=== PATIENT | male | born 2000 | race Caucasian/White ===

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

== ENCOUNTER 2020-02-02 23:44 | Emergency (ER) | payer OTHER, SELFPAY ==
[2020-02-02 23:45] VITALS: BP 144/91; PULSE 88; RESP 18; TEMP 37.4; O2SAT 98; BMI 22.4
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
[2020-02-03] MEDS: Naproxen 500 MG Tablet PO (01:50)
[2020-02-03 01:53] VITALS: BP 131/96; PULSE 99; RESP 16; O2SAT 96
== END 2020-02-03 01:54 | disposition home or self-care (01) ==
PROVIDERS: Emergency Provider Emergency Medicine
DX: S16.1XXA Strain of muscle, fascia and tendon at neck level, initial encounter (principal); S81.802A Unspecified open wound, left lower leg, initial encounter; V48.0XXA Car driver injured in noncollision transport accident in nontraffic accident, initial encounter; Y93.I9 Activity, other involving external motion; Y92.410 Unspecified street and highway as the place of occurrence of the external cause; Y99.8 Other external cause status
CPT/HCPCS: 70450; 71045; 72125; 73090; 99285

== ENCOUNTER → 2020-08-07 08:15 | Outpatient (CLI) | payer OTHER, SELFPAY ==
--- NOTE | 2020-08-07 08:17 | CT_ITS ---
STUDY: CT MAXILLOFACIAL SINUSES REASON FOR EXAM: Male, 20 years old. SINUSITIS RADIATION DOSAGE (If Supplied By Facility): CTDIvol = ( 33.06 ) mGy, DLP = ( 871.04 ) mGycm TECHNIQUE: The patient was scanned in a multi detector CT scanner. High resolution axial imaging was performed without the administration of intravenous contrast material. Sagittal and coronal images were reconstructed. Individualized dose optimization techniques were used for this CT. COMPARISON: None. FINDINGS: FRONTAL SINUSES: Normal aeration, without mucosal inflammatory disease. ETHMOIDAL SINUSES: Mild mucosal thickening of the ethmoid sinuses more prominent on the right side. MAXILLARY SINUSES: Normal aeration, without mucosal inflammatory disease. SPHENOIDAL SINUSES: Normal aeration, without mucosal inflammatory disease. There is patency of the bilateral maxillary infundibuli with normal uncinate processes, ethmoid bullae, and hiatus semilunaris. Normal bilateral middle turbinates. There is hypertrophy of the right inferior nasal turbinate. There is a right sided nasal septal deviation, but without a nasal septal spur. Soft tissue prominence in the right nasal fossa suggestive of polyposis. The visualized osseous structures are normal. The visualized bilateral orbital contents are normal. CT/Sinus/Facial Bone IMPRESSION: Nasal septal deviation towards the right side of the midline with the hypertrophy of the inferior nasal turbinate and soft tissue prominence of the right nasal cavity. Minimal mucosal thickening of the ethmoid sinuses bilaterally Electronically Signed: Giovanny Hernandez, at 9:03 EST , Service support ,
== END ==
PROVIDERS: PCP Internal Medicine; Referring Provider Otolaryngology; Visit Provider Otolaryngology
DX: J32.9 Chronic sinusitis, unspecified (principal)
CPT/HCPCS: 70486

== ENCOUNTER → 2020-08-29 10:25 | Outpatient (CLI) | payer OTHER, SELFPAY | PROVIDERS: PCP Internal Medicine; Referring Provider Otolaryngology; Visit Provider Otolaryngology | DX: Z11.59 Encounter for screening for other viral diseases (principal) | CPT/HCPCS: 87635; C9803; U0003 ==

== ENCOUNTER → 2020-09-10 17:07 | Outpatient (CLI) | payer OTHER, SELFPAY | PROVIDERS: PCP Internal Medicine; Referring Provider Otolaryngology; Visit Provider Otolaryngology | DX: Z11.59 Encounter for screening for other viral diseases (principal) | CPT/HCPCS: 87635; C9803; U0003 ==

== ENCOUNTER → 2020-09-17 | Outpatient (CLI) | payer OTHER, SELFPAY ==
--- NOTE | 2020-09-17 10:35 | NASAL_PTH ---
PATIENT: STELLA SANTANA LOC: [facility] U#:[id number] AGE/SX: 20/M ROOM: RE09/17/[address]: Dr. Aleksey Calles MD : 2000 BED: DIS: 09/17/2020 SPEC #: [id number] RECD: 09/17/20 15:01 STATUS: SUPA REMigdalia #: [id number] GOPAL: 09/17/20 10:[address]: Aleksey Calles DEPT: SURGICAL PATHOLOGY RECD BY: Miguel Leggett ENTERED: 09/18/20 07:14 SP TYPE: NASAL SPEC OTHR DR: Dr. Elizabeth Bell, [facility] Tissues: TISSUE SURGICALLY REMOVED Procedures: Surgery Specimen Level IV HEADER OPERATION: Open rhinoplasty PRE-OP DIAGNOSIS: Nasal congestion, deviated nasal septum, acquired deformity of nose TISSUE SUBMITTED: Nasal mass MICROSCOPIC DIAGNOSIS Nasal mass, biopsy: Benign fibroepithelial polyp. AM:elise 09/19/20 MICROSCOPIC DESCRIPTION Slides are reviewed. GROSS DESCRIPTION Received is one container labeled with the patient's name and not further designated. The specimen consists of one irregular fragment of light willard soft tissue that measures 0.2 x 0.1 x 0.1 cm. The specimen is totally submitted in one cassette. / AM:elise 09/18/20 TC:1 CPT: 06160
== END | disposition home or self-care (01) ==
LOC: LABSPEC 15:51
PROVIDERS: PCP Internal Medicine; Visit Provider Otolaryngology
DX: J34.2 Deviated nasal septum (principal); M95.0 Acquired deformity of nose; R09.81 Nasal congestion
CPT/HCPCS: 88305

== ENCOUNTER 2020-09-23 08:09 | Day surgery (SDC) | payer OTHER, SELFPAY ==
[2020-09-23] VITALS (10 sets, daily range): BP systolic 120–167; BP diastolic 76–100; PULSE 61–105; RESP 16–18; TEMP 36.6–37.6; O2SAT 96–100; BMI 23.0
[2020-09-23] MEDS: Oxymetazoline 0.05% 1 SPRAY SPRAY.BTL 2 SPRAY NASAL (08:20)
[2020-09-23] MEDS: Lidocaine 4% 50 ML Bottle TOPICAL (08:21)
[2020-09-23 08:28] LABS: Absolute Lymphocyte Count 1.72 X10^3/uL (0.83-4.51); Absolute Neutrophil Count 4.9 X10^3/uL (2.0-7.7); Basophil# 0.03 X10^3/uL; Basophil% 0.4 % (0-1); Eosinophil# 0.27 X10^3/uL; Eosinophils% 3.7 % (0-5); Hematocrit 38.3 % (40-54); Hemoglobin 13.5 g/dL (13.0-16.5); Lymphocyte # 1.72 X10^3/ul (4.0); Lymphocyte % 23.4 % (19-41); Mean Corp Hgb Conc 35.2 g/dL (32-36); Mean Corpuscular Hgb 31.8 pg (27.0-32.0); Mean Corpuscular Volume 90.3 fL (80-94); Mean Platelet Vol. 10.2 fl (6.2-12.0); Monocyte# 0.43 X10^3/uL; Monocyte% 5.9 % (0-10); NRBC Flagged by Analyzer 0 % (0-5); Neutrophil # 4.86 X10^3/uL (2.7-7.7); Neutrophil % 66.2 % (47-70); Platelet Count 200 K/mm3 (150-450); RBC Distribution Width CV 12.2 % (11.6-14.6); RBC Distribution Width SD 39.4 fl (35.1-43.9); Red Blood Count 4.24 M/mm3 (4.6-6.2); White Blood Count 7.3 K/mm3 (4.4-11.0)
--- NOTE | 2020-09-23 08:33 | ED.VISSUMM ---
- ER Visit Summary Date of Service: 09/23/20 Chief Complaint: Epistaxis History of Present Illness: The patient is a 20 M who presents with epistaxis that began today. Patient states he woke up at approximately 0600 and was bleeding from both nares. Patient had a recent septoplasty done on 09/17/2020. Patient still has stents in place. Patient states the bleeding is coming from both nares. Patient states nothing makes it better or worse. Patient denies any fevers or chills. Patient admits to a mild cough and some nausea. Patient denies any trauma or injury. Patient states he has been taking ibuprofen as needed for pain. Physical Examination: Vital signs are stable except for slight tachycardia of 105. Patient is afebrile. Patient is in no acute distress. There is some active bleeding coming from the left nares. There are stents in place. There is some bleeding in the oropharynx. Neck is supple. Trachea is midline. There is no JVD. Cranial nerves II through XII are intact. There are no focal motor or sensory deficits noted. Test Results: CBC was obtained and was within normal limits. PT with INR and PTT were also obtained and are within normal limits. Anesthesiologist requested a Covid 19 antigen test. This was performed and is pending. Emergency Department Course and Treatment: Cottonball soaked with Afrin and 4% lidocaine were placed in the openings of the nares bilaterally. Bleeding seemed to slow down and improved. Patient was transferred to the operating room for ENT evaluation. Patient and family understood and were agreeable with the plan. All questions were answered. Disposition: Transfer to operating room Impression: 1. Epistaxis This note was generated with [employer] dictation software. It may contain incorrect words, spelling, and punctuation that were not noted in review of the chart prior to signing ED Disposition - Plan for ED Patient: Disposition: Acute Care Hospital [facility] Diagnosis: Epistaxis
[2020-09-23 08:47] LABS: Prothrombin Time (Protime)PT. 13.1 SECONDS (11.7-14.9)
[2020-09-23 08:48] LABS: Partial Thromboplast Time 23.1 Seconds (24.1-36.2)
--- NOTE | 2020-09-23 09:34 | CON.PCM_ITS ---
Problem List (1) Epistaxis Status: Acute Reason for Consult Date of Consultation: 09/23/20 History of Present Illness: The patient is a 20 year old M 1 week s/p rhinoplasty. he began with an intractable nosebleed this morning that did not stop with conservative measures. no other symptoms. Past Medical History Allergies No Known Allergies Allergy (Verified 09/23/20 08:12) Home Medications: Ambulatory Orders Medication Instructions Recorded Naproxen [Naprosyn] 500 mg PO BID PRN PRN #20 tab 02/03/20 Smoking Status: Never smoker Tobacco Use: Non-smoker Review of Systems HEENT: Reports: - - epistaxis. Denies: Head Aches, Sinus Congestion, Sinus Drainage Cardiovascular: Denies: Chest Pain, Palpitations Respiratory: Denies: Cough, Shortness of breath at rest, Sputum production Patient Problems: Active and Suspected Problems Epistaxis (Acute) - Physical Exam Vitals/I&O's: Vital Signs Temp Pulse Resp BP Pulse Ox 97.8 F 105 H 18 120/100 H 99 09/23/20 09:01 09/23/20 09:01 09/23/20 09:01 09/23/20 09:01 09/23/20 09:01 Oxygen Delivery Method Room Air Weight: 77.111 kg Body Mass Index (BMI) 23.0 General: Alert, Oriented x3, Cooperative HEENT: - - gomez splints and dorsal nasal splint in place. active bleeding. Microbiology Past 72 Hours 09/23/20 08:33 Mucosa - Nose SARS-CoV-2 Antigen (Rapid) - Final Laboratory Results 09/23/20 08:20: WBC 7.3, RBC 4.24 L, Hgb 13.5, Hct 38.3 L, MCV 90.3, MCH 31.8, MCHC 35.2, RDW Std Deviation 39.4, RDW Coeff of Akhil 12.2, Plt Count 200, MPV 10.2, Immature Gran % (Auto) 0.400, Neut % (Auto) 66.2, Lymph % (Auto) 23.4, [place] % (Auto) 5.9, Eos % (Auto) 3.7, Baso % (Auto) 0.4, Absolute Neuts (auto) 4.9, Absolute Lymphs (auto) 1.72, Nucleated RBC % 0 01/04/21 08:20: PT 13.1, INR 1.0, APTT 23.1 L Current Medications Acetaminophen (Acetaminophen 325 Mg Tablet) 650 mg PO Q6H PRN PRN PRN Reason: Pain 1-10 or Fever Assessment/Plan All Active Problems Epistaxis (Acute) 20 year old 1 week s/p rhinoplasty with epistaxis -admitted to significant ibuprofen use -will cauterize in OR
--- NOTE | 2020-09-23 09:37 | OP.PCM_ITS ---
Problem List (1) Epistaxis Status: Acute Report of Operation Date of Procedure: 09/23/20 Pre-Operative Diagnosis: epistaxis Post-Operative Diagnosis: epistaxis Surgery/Procedure Performed:: cautery of nasal hemorrhage Type of Anesthesia:: General Description of Procedure: on the day of the procedure after appropriate informed consent was obtained, the patient was brought to the operating room and placed in supine position on the operating table. he was placed under general endotracheal anesthesia by the anesthesiologist. his dorsal nasal splint was removed. his gomez splints were removed. the zero degree endoscope was used to evaluate his right and left nasal cavities. he had some slight oozing from his right nasal cavity, but no significant bleeding was noted. a merocel was placed in the right. the left nasal cavity was examined and some brisk arterial bleeding was noted. no source was seen. areas around the middle turbinate were packed with oxymetazoline- soaked pledgets. these were removed and no source was seen, but hemostasis was observed. a valsalva was held, and no bleeding was seen. the superior attachment of the middle turbinate, the middle turbinate, and the location of the sphenopalatine artery posterior to the inferior uncinate were all cauterized with blanching of the surrounding tissue. no masses were seen bilaterally. surgicel was placed medial, lateral and inferior to the middle turbinate. yaa was placed bilaterally and a left-sided merocel was placed. no bleeding was observed. a nasogastric tube was inserted orally and gastric contents were evacuated. he was brought out of general endotracheal anesthesia by the anesthesiologist. he was transferred to the PACU in stable condition.
[2020-09-23] MEDS: Oxymetazoline 0.05% 1 SPRAY SPRAY.BTL 15 SPRAY (09:50)
--- NOTE | 2020-09-23 10:42 | DCINST_ITS ---
- Discharge Diagnoses Current Active Problems: Current Active and Chronic Problems Epistaxis (Acute) You will use the following diet at home:: No restrictions Discharge Activity: - - no strenuous activity Call your doctor if your incision/area has: Sudden Increased Bleeding Allergies/Adverse Reactions: Allergies No Known Allergies Allergy (Verified 09/23/20 08:12) Medications to take at Discharge Naproxen [Naprosyn] 500 mg PO BID PRN PRN #20 tab 02/03/20 Primary Care Physician: Elizabeth Bell DO [Primary Care Provider] - Test Results: Test results from this visit will be discussed in further detail at your follow- up appointment, if applicable. Please Follow Up With: Familia Calles MD When: next wednesday
[2020-09-23] MEDS: Acetaminophen 325 MG Tablet 650 MG PO (12:14)
== END 2020-09-23 13:21 | disposition home or self-care (01) ==
LOC: ED 08:33 → SDC 08:35 → ACINP 08:36
PROVIDERS: Emergency Provider Emergency Medicine; PCP Internal Medicine; Visit Provider Otolaryngology
PROC: (CPT 31238; principal; 2020-09-23 13:20)
DX: R04.0 Epistaxis (principal)
CPT/HCPCS: 31238; 85025; 85610; 85730; 87426; 99284; J7120; A4216; J2405

== ENCOUNTER 2021-07-04 08:19 | Emergency (ER) | payer OTHER, SELFPAY ==
[2021-07-04 08:20] VITALS: BP 133/81; PULSE 79; RESP 18; TEMP 35.7; O2SAT 100; BMI 23.0
--- NOTE | 2021-07-04 09:07 | CT_ITS ---
STUDY: CT ABDOMEN AND PELVIS WITH CONTRAST REASON FOR EXAM: Male, 21 years old. Diffuse abdominal pain RADIATION DOSAGE (If Supplied By Facility): CTDIvol = ( 7.85 ) mGy, DLP = ( 532.92 ) mGycm TECHNIQUE: Transaxial images were obtained from the dome of the diaphragm to the symphysis pubis without oral contrast. IV 100mL Isovue-300 was administered. Sagittal and coronal images were reconstructed. Individualized dose optimization techniques were used for this CT. COMPARISON: None. FINDINGS: The visualized lung bases are unremarkable. The visualized portions of the heart are within normal limits. Normal liver. Normal gallbladder and extrahepatic biliary system. Normal spleen. Normal pancreas. Normal bilateral adrenal glands. Normal right kidney. Normal left kidney. There is a small hiatal hernia. Normal small intestine. Diffuse thickening of the right hemicolon suggestive of colitis. This also evidence of thickening of the left hemicolon The appendix is visualized and appears normal. Normal abdominal aorta. Normal inferior vena cava. Normal retroperitoneum. Normal urinary bladder. Normal abdominal wall. Normal osseous structures. CT/Abdomen/Pelvis W IV Cont ONLY IMPRESSION: Findings suggestive of a pancolitis. Electronically Signed: Giovanny Hernandez MD at 10:16 EDT , Service support ,
--- NOTE | 2021-07-04 09:07 | ED.VIS.GI ---
HPI HPI - GI History of Present Illness Chief Complaint: Abd Pain Informant: patient Abdominal Pain/Flank Pain Onset: Today (8 hrs ago) Context: Sudden Onset (Woke up from sleep with severe pain) Timing: Continuous Quality: Aching Location: Diffuse (Pain is diffuse but basically patient is pointing to the lower and upper midline. He states the pain does not feel worse on one side versus the other.) Current Severity: Severe Maximum Severity: Severe Worsened by: Nothing Relieved by: Nothing Nausea/Vomiting/Emesis GI Symptom: Positive for Nausea; Negative for Vomiting Diarrhea/Melena/Hematochezia GI Symptom: Positive for - (Last normal bowel movement was yesterday and it was unremarkable); Negative for Diarrhea, Melena and Hematochezia Associated Symptoms Associated Symptoms: Negative for Dysuria, Frequency, Hematuria and Urgency Narrative Narrative: Healthy 21-year-old presenting with acute onset severe diffuse abdominal pain. No history of any abdominal surgeries. States the pain is nonlateralizing. Does not radiate to his back. Nauseated but cannot vomit. States he feels like he needs to vomit and go to the bathroom at the same time. He states he is unable to do either. He states he uses marijuana on occasion but no drugs no recent alcohol. Prior similar symptoms: No Recent Illness/Hospitalization: No PFSH PFSH Medical History no medical history no medical history Home Medications naproxen 500 mg PO BID PRN PRN #20 tab 02/03/20 [Rx Last Taken Unknown] dicyclomine 10 mg PO TID #21 capsule 07/04/21 [Rx Last Taken Unknown] ondansetron 8 mg PO Q8H PRN PRN #20 tab 07/04/21 [Rx Last Taken Unknown] oxycodone-acetaminophen 1 tab PO Q6H PRN PRN 5 Days #20 tablet 07/04/21 [Rx Last Taken Unknown] prednisone 40 mg PO DAILY #14 tablet 07/04/21 [Rx Last Taken Unknown] Allergy/AdvReac Type Severity Reaction Status Date / Time No Known Allergies Allergy Verified 07/04/21 08:20 Surgical History no surgical history no surgical history Social History (Updated 07/04/21 @ 09:[address] Sunday Morales MD) Smoking Status: Never smoker substance use type: marijuana and other details: No IV drug use or other illicits ROS ROS ED Constitutional Constitutional ED: Denies chills or fever(s) Eyes Eyes: Denies change in vision or diplopia ENT ENT ED: Denies rhinorrhea or sore throat Cardiovascular Cardiovascular: Denies chest pain or palpitations Respiratory/Chest Respiratory/Chest: Denies cough or dyspnea Gastrointestinal Gastrointestinal: Reports as per HPI, abdominal pain and nausea; Denies diarrhea or vomiting Genitourinary Genitourinary ED: Denies dysuria or hematuria Musculoskeletal Musculoskeletal: Denies back pain or neck pain Integumentary Denies abscess or rash Neurologic Neurologic: Denies headache(s), paresthesias or weakness Psychiatric Psychiatric: Denies anxiety or suicidal thoughts EXAM Physical Exam Const Vital Signs: 07/04/21 08:20 07/04/21 11:20 Temperature 96.3 F L Temperature Source Temporal Pulse Rate 79 Respiratory Rate 18 16 Blood Pressure 133/81 H Blood Pressure Mean 98 Pulse Ox 100 Oxygen Delivery Method Room Air Positive well nourished and well developed Constitutional Narrative: Appears to be in mild painful distress, very uncomfortable General Appearance ED: well developed HEENT Reports moist mucous membranes normocephalic and atraumatic Eyes PERRL and EOMs intact bilaterally Neck full ROM and supple Resp normal respiratory effort and clear to auscultation bilaterally Cardio regular rate, regular rhythm and no murmurs GI non-distended GI Narrative: Nondistended and diffusely tender throughout all parts of abdomen. Some voluntary guarding no specific rebound tenderness. No palpable masses but this part of the exam is limited due to tenderness. Good pulses in the feet. No palpable hernia. Auscultation: normoactive bowel sounds Palpation: soft Back/Spine no CVA tenderness and normal ROM General Back: other FROM Extremity normal to inspection General Extremety ED: Negative for edema, pulses abnormal or tenderness General Extremity: Negative for edema or pulses abnormal Neuro oriented x3, CN's II-XII intact bilaterally and no sensory deficits noted Sensorium / Orientation: awake and alert Motor Exam: strength 5/5 throughout Psych mental status grossly normal, thought process normal and cooperative Psych Narrative: A little anxious, probably due to pain Skin no rashes or lesions noted and no wounds MDM MDM MDM Narrative Medical decision making narrative: Labs reviewed in addition to CT, showing pancolitis, he has no leukocytosis. Patient was given IV fluids, Zofran, morphine, this did help control his pain. He was not pain-free, but much more comfortable after medications. I discussed with Dr. Joe BUSTAMANTE. He looked at the CT as well. He recommends giving the patient Solu-Medrol 60 mg here in addition to prednisone 40 mg daily until he follows up in about a week, and placing him on dicyclomine 10 mg/day. Discussed all this with the patient is comfortable with that plan. Lab Data Attestation: I reviewed the patient's lab results. Labs: Laboratory Results - last 24 hr 07/04/21 07/04/21 08:30 08:30 WBC 9.8 RBC 4.89 Hgb 15.0 Hct 42.1 MCV 86.1 MCH 30.7 MCHC 35.6 RDW Std Deviation 36.9 RDW Coeff of Akhil 11.8 Plt Count 242 MPV 11.3 Immature Gran % (Auto) 0.300 Neut % (Auto) 87.5 H Lymph % (Auto) 8.0 L [place] % (Auto) 3.8 Eos % (Auto) 0.1 Baso % (Auto) 0.3 Absolute Neuts (auto) 8.6 H Absolute Lymphs (auto) 0.78 L Nucleated RBC % 0 Sodium 137 Potassium 3.7 Chloride 105 Carbon Dioxide 25.0 Anion Gap 7 BUN 11 Creatinine 1.03 Estim Creat Clear Calc 123.72 Est GFR (MDRD) Af Amer 117 Est GFR (MDRD) Non-Af 97 BUN/Creatinine Ratio 10.7 Glucose 113 H Calcium 9.8 Total Bilirubin 0.70 AST 25 ALT 30 Alkaline Phosphatase 55 Total Protein 8.2 Albumin 4.4 Globulin 3.8 Albumin/Globulin Ratio 1.2 Lipase 74 Radiography Diagnostic Testing: Clinical Impression(s) from Imaging Studies Abdomen/Pelvis CT 07/04/21 09:07 IMPRESSION: Findings suggestive of a pancolitis. Electronically Signed: Giovanny Hernandez MD at 10:16 EDT , Service support , Discharge Plan Triage Chief Complaint: Abd Pain ED Provider: Sunday Morales Dx/Rx/DC Orders Clinical Impression: Pancolitis Instructions: ED Understanding Colitis Prescriptions: New dicyclomine 10 MG capsule 10 mg PO TID Qty: 21 RF: 0 prednisone 20 MG tablet 40 mg PO DAILY Qty: 14 RF: 0 ondansetron [ondansetron] 4 MG tablet 8 mg PO Q8H PRN PRN (Reason: Nausea) Qty: 20 RF: 0 oxycodone-acetaminophen [oxycodone-acetaminophen] 1 TABLET tablet 1 tab PO Q6H PRN PRN (Reason: pain) 5 Days Qty: 20 RF: 0 No Action naproxen 500 MG tablet 500 mg PO BID PRN PRN (Reason: Pain Score 4-10/10) Qty: 20 RF: 0 Primary Care Provider: Elizabeth Bell Referrals: Elizabeth Bell DO [Primary Care Provider] - Friend,DO Chucky [STAFF PHYSICIAN] - 5-7 Days (call for appt) Disposition Disposition: Home, Self Care
[2021-07-04 09:15] LABS: Absolute Lymphocyte Count 0.78 X10^3/uL (0.83-4.51); Absolute Neutrophil Count 8.6 X10^3/uL (2.0-7.7); Basophil# 0.03 X10^3/uL; Basophil% 0.3 % (0-1); Eosinophil# 0.01 X10^3/uL; Eosinophils% 0.1 % (0-5); Hematocrit 42.1 % (40-54); Lymphocyte # 0.78 X10^3/ul (0.83-4.51); Mean Corp Hgb Conc 35.6 g/dL (32-36); Mean Corpuscular Hgb 30.7 pg (27.0-32.0); Mean Corpuscular Volume 86.1 fL (80-94); Mean Platelet Vol. 11.3 fl (6.2-12.0); Monocyte# 0.37 X10^3/uL; Monocyte% 3.8 % (0-10); NRBC Flagged by Analyzer 0 % (0-5); Neutrophil # 8.58 X10^3/uL (2.7-7.7); Neutrophil % 87.5 % (47-70); Platelet Count 242 K/mm3 (150-450); RBC Distribution Width CV 11.8 % (11.6-14.6); RBC Distribution Width SD 36.9 fl (35.1-43.9); Red Blood Count 4.89 M/mm3 (4.6-6.2); White Blood Count 9.8 K/mm3 (4.4-11.0)
[2021-07-04] MEDS: Ondansetron 4 MG/2 ML Vial IV (09:15)
[2021-07-04] MEDS: Morphine 4 MG/ML Syringe IV ×2 (09:15→12:28)
[2021-07-04] MEDS: 0.9% Normal Saline 1,000 ML 1000 ML IV (09:16)
[2021-07-04 09:27] LABS: ALB/GLOB Ratio 1.2 RATIO (0.9-2.4); AST(SGOT) 25 U/L (15-37); Alanine Aminotransfer ALT/SGPT 30 U/L (16-61); Albumin, Serum 4.4 g/dL (3.2-5.0); Alkaline Phosphatase 55 U/L (45-117); Anion Gap 7 (5-15); BUN 11 mg/dL (7-18); BUN/Creat Ratio 10.7 RATIO (10-20); Calcium,Total 9.8 mg/dL (8.5-10.1); Chloride 105 mmol/L (98-107); Creatinine, Serum 1.03 mg/dL (0.70-1.30); EST Glomerular Filtration Rate 97 mL/min (>60); Est Glom Filt Rate - Afr Amer 117 mL/min (>60); Estimated Creatinine Clearance 123.72 ml/min; Globulin 3.8 g/dL (2.2-4.2); Glucose 113 mg/dL (74-106); Lipase 74 U/L (73-393); Potassium 3.7 mmol/L (3.5-5.1); Protein, Total 8.2 g/dL (6.4-8.2); Sodium Level 137 mmol/L (136-145)
[2021-07-04 11:20] VITALS: RESP 16
[2021-07-04] MEDS: Dicyclomine 10 MG Capsule PO (11:42)
[2021-07-04 11:43] LABS: Bacteria 0 SEEN /hpf (None Seen); Mucous, Urine 0 SEEN /hpf (<or=2+); Red Blood Cells-Urine 0 SEEN /hpf (0-5); White Blood Cells 0 SEEN /hpf (0-5)
[2021-07-04] MEDS: MethylPREDNISolone 125 MG/2 ML Vial 60 MG IV (11:45)
[2021-07-04 11:47] LABS: Color, Urine Yellow (Yellow); Glucose, Dipstick Normal (Normal); Leukocyte Esterase-Dipstick Negative /ul (Negative); Nitrite-Dipstick Negative (Negative); Occult Blood-Urine Negative /ul (Negative); Protein-Dipstick Negative (Negative); Specific Gravity, Urine 1.015 (1.002-1.030); Urine Bilirubin Dipstick Negative (Negative); Urine Clarity Clear (Clear); Urine Urobilinogen Normal (Normal)
[2021-07-04 11:54] LABS: Ketone-Dipstick 150 mg/dl (Negative)
[2021-07-04 11:55] LABS: Squamous Epithelial Cells - UA 0-5 SEEN /hpf (0-5)
[2021-07-04] MEDS: Metoclopramide 10 MG/2 ML Vial 5 MG IV (12:28)
--- NOTE | 2021-07-04 12:57 | ED.RN ---
PT DID NOT WANT TO BE ADMITTED PT EDUCATED ON D/C INSTRUCTIONS AND HOME SCRIPTS. PT LOOKED MORE COMFORTABLE AFTER FINAL DOSE OF MORPHINE AND REGLAN. PT D/C AFTER SHOT TIME WAS OBSERVED FOR GREATER THAN 20 MIN. NO REACTION NOTED BY THIS RN.
[2021-07-04 12:59] VITALS: PULSE 100; RESP 19; O2SAT 97
== END 2021-07-04 13:00 | disposition home or self-care (01) ==
PROVIDERS: Emergency Provider Emergency Medicine; PCP Internal Medicine
DX: K51.00 Ulcerative (chronic) pancolitis without complications (principal)
CPT/HCPCS: 74177; 80053; 81001; 83690; 85025; 96361; 96374; 96375; 99283; J7030; Q9967; A4216; J2405

== ENCOUNTER 2021-07-30 07:47 | Emergency (ER) | payer OTHER, SELFPAY ==
[2021-07-30 07:48] VITALS: BP 120/80; PULSE 94; RESP 16; TEMP 36.4; O2SAT 100; BMI 22.4
--- NOTE | 2021-07-30 07:57 | CT_ITS ---
STUDY: CT ABDOMEN AND PELVIS WITHOUT CONTRAST REASON FOR EXAM: Male, 21 years old. Right lower quadrant pain with history of colitis. RADIATION DOSAGE (If Supplied By Facility): CTDIvol = ( 5.63 ) mGy, DLP = ( 282.07 ) mGycm TECHNIQUE: Transaxial images were obtained from the dome of the diaphragm to the symphysis pubis without oral contrast, and without intravenous contrast. Sagittal and coronal images were reconstructed. Individualized dose optimization techniques were used for this CT. COMPARISON: Comparison is made with prior study 07/04/2021. FINDINGS: The visualized lung bases are unremarkable. The visualized portions of the heart are within normal limits. Normal liver. Normal gallbladder and extrahepatic biliary system. Normal spleen. Normal pancreas. Normal bilateral adrenal glands. Normal right kidney. Normal left kidney. There is a small hiatal hernia. Normal small intestine. I suspect mural thickening of the transverse colon and left hemicolon although the examination is limited without oral contrast. I suspect residual colitis. The appendix is visualized and appears normal. Normal abdominal aorta. Normal inferior vena cava. Normal retroperitoneum. Normal urinary bladder. Normal abdominal wall. Normal osseous structures. CT/Abdomen/Pelvis without Cont IMPRESSION: I suspect residual colitis of the transverse colon and left hemicolon. Electronically Signed: Giovanny Hernandez MD at 9:03 EST , Service support ,
--- NOTE | 2021-07-30 07:58 | ED.VIS.GI ---
HPI HPI - GI History of Present Illness Chief Complaint: Abd Pain Detail of Chief Complaint: Abdominal pain that started around 3 AM. Informant: patient Abdominal Pain/Flank Pain Current Severity: Severe Nausea/Vomiting/Emesis GI Symptom: Positive for Nausea and Vomiting Narrative Narrative: Patient presents to the emergency room with complaint of abdominal pain that started around 3 AM. Patient states that he had similar pain about a month ago and was seen in the ER and diagnosed with pancolitis. Patient was started on steroids and referred to GI for follow-up. Patient states he never followed up with GI and when asked why he states because I am irresponsible. Patient states the pain feels similar. States the pain is more lower right quadrant. Has had no fever. Patient is thrown up about 4 5 times. He denies any diarrhea. He denies urinary symptoms. Patient denies any blood in his stool or black tarry stools. PFSH PFSH Home Medications dicyclomine 10 mg PO TID #21 capsule 07/04/21 [Rx Last Taken Unknown] ondansetron 8 mg PO Q8H PRN PRN #20 tab 07/04/21 [Rx Last Taken Unknown] ciprofloxacin HCl [Cipro] 500 mg PO BID #20 tab 07/30/21 [Rx Last Taken Unknown] hydrocodone-acetaminophen 1 tab PO Q4H PRN PRN 2 Days #10 tablet 07/30/21 [Rx Last Taken Unknown] metronidazole 500 mg PO Q8H #30 tab 07/30/21 [Rx Last Taken Unknown] prednisone 20 mg PO BID #10 tab 07/30/21 [Rx Last Taken Unknown] Allergy/AdvReac Type Severity Reaction Status Date / Time No Known Allergies Allergy Verified 07/30/21 07:50 Social History (Updated 07/04/21 @ 09:[address] Sunday Morales MD) Smoking Status: Never smoker substance use type: marijuana and other details: No IV drug use or other illicits ROS ROS ED Constitutional Constitutional ED: Reports systems reviewed and no addt'l complaints, except as documented; Denies body ache(s), change in weight or chills Eyes Eyes: Denies acute decrease in peripheral vision, change in vision, double vision or loss of vision ENT ENT ED: Reports none; Denies ear pain, lip swelling, loss taste/smell, neck pain, otalgia or sore throat Cardiovascular Cardiovascular: Reports none; Denies abdominal pain, chest pain with activity, leg edema, lightheadedness, palpitations, rapid heart rate or syncope Respiratory/Chest Respiratory/Chest: Reports none; Denies change in mental status, dry cough, dyspnea, hemoptysis, shortness of breath at rest or shortness of breath with exertion Gastrointestinal Gastrointestinal: Reports none, abdominal pain, nausea and vomiting; Denies change in stool character, diarrhea, hematemesis, hematochezia, melena or rectal bleeding Genitourinary Genitourinary ED: Reports none; Denies abdominal discomfort, anuria, dysuria, genital pain or polyuria Musculoskeletal Musculoskeletal: Reports none; Denies arthralgias, back pain, difficulty walking, extremity pain, muscle weakness or myalgias Integumentary Reports none; Denies abscess or rash Neurologic Neurologic: Reports none; Denies abnormal gait, confusion, focal weakness, frequent falls, headache(s), loss of vision, numbness, paresthesias, radicular pain, vertigo or weakness Psychiatric Psychiatric: Reports systems reviewed and no addt'l complaints, except as documented and none; Denies behavioral changes, confusion, difficulty concentrating, hallucinations, suicidal ideation, tactile hallucinations or visual hallucinations Endocrine Endocrinology: Denies none, cold intolerance, excessive sweating, fatigue or heat intolerance Hematologic/Lymphatic Hematologic/Lymphatic: Reports none; Denies anemia, easy bleeding or easy bruising Allergic/Immunologic Allergic/Immunologic ED: Denies as per HPI, none, lip swelling, mouth swelling, throat swelling, tongue swelling or hives EXAM Physical Exam Const Vital Signs: 07/30/21 07:48 07/30/21 10:55 Temperature 97.5 F L Temperature Source Temporal Pulse Rate 94 90 Respiratory Rate 16 18 Blood Pressure 120/80 130/90 H Blood Pressure Mean 93 103 Pulse Ox 100 99 Oxygen Delivery Method Room Air Room Air Positive well nourished and well developed General Appearance ED: well developed and NAD HEENT Reports TM's clear and moist mucous membranes normocephalic and atraumatic; Negative for trauma or tenderness Tympanic Membrane ED: Yes TM's clear Eyes PERRL and EOMs intact bilaterally General Eye ED: Negative for pale conjunctiva or scleral icterus Neck no lymphadenopathy, supple and no JVD General: Negative for tenderness Chest Wall inspection of chest normal and palpation of chest normal Chest: Negative for tenderness Resp normal respiratory effort and clear to auscultation bilaterally Effort and Inspection: Negative for respiratory distress or pain with movement Auscultation: Negative for rhonchi, wheezes or diminished lung sounds Cardio regular rate, regular rhythm, S1 normal heart sound, S2 normal heart sound and no murmurs Peripheral Pulses: pulses 2+ throughout GI normal to inspection, nondistended, normoactive bowel sounds, soft to palpation, non-distended and no masses GI Narrative: Tenderness to right lower quadrant with guarding. Tenderness over McBurney's. No rebound or rigidity. Palpation: tender Back/Spine no CVA tenderness and no thoracic nor lumbar tenderness Extremity normal to inspection General Extremety ED: Negative for edema General Extremity: Negative for edema Neuro oriented x3, CN's II-XII intact bilaterally, no sensory deficits noted and gait normal Sensorium / Orientation: awake, alert, oriented to person, oriented to place and oriented to time Motor Exam: strength 5/5 throughout and strength abnormal Psych mental status grossly normal Skin no rashes or lesions noted and no wounds MDM MDM MDM Narrative Medical decision making narrative: IV line established. Patient was given morphine and Zofran for pain and initially had good pain relief with that. Repeat CT scan showed residual colitis of the transverse colon left hemicolon. Case discussed with content development manager on-call Dr. Diaz. Was asked start patient on antibiotics and steroids and they be happy to see him in the office. Patient's pain returned and had to be remedicated with 4 mg of morphine. I offered him admission for pain control although he would like to go home and follow-up with GI. Patient advised to return if worsening pain, fever, bloody stools, or condition should worsen anyway. Patient was given p.o. meds and then had another emesis. He continues to have nausea and vomiting as well as abdominal discomfort. I recommended admission however patient is refusing and does not want to stay. He is advised to return if symptoms should persist or worsen. Lab Data Attestation: I reviewed the patient's lab results. Labs: Laboratory Results - last 24 hr 07/30/21 07/30/21 07/30/21 08:15 08:15 08:15 WBC 8.8 RBC 4.89 Hgb 14.9 Hct 43.0 MCV 87.9 MCH 30.5 MCHC 34.7 RDW Std Deviation 40.5 RDW Coeff of Akhil 12.4 Plt Count 241 MPV 10.9 Immature Gran % (Auto) 0.500 Neut % (Auto) 84.9 H Lymph % (Auto) 10.7 L [place] % (Auto) 3.2 Eos % (Auto) 0.1 Baso % (Auto) 0.6 Absolute Neuts (auto) 7.4 Absolute Lymphs (auto) 0.94 Nucleated RBC % 0 Sodium 140 Potassium 3.9 Chloride 107 Carbon Dioxide 27.0 Anion Gap 6 BUN 8 Creatinine 1.01 Estim Creat Clear Calc 126.00 Est GFR (MDRD) Af Amer 120 Est GFR (MDRD) Non-Af 99 BUN/Creatinine Ratio 7.9 L Glucose 110 H Lactic Acid 2.2 H* Calcium 9.4 Total Bilirubin 0.30 AST 19 ALT 25 Alkaline Phosphatase 60 C-React Prot Ext Range < 2.90 Total Protein 8.0 Albumin 4.4 Globulin 3.6 Albumin/Globulin Ratio 1.2 Urine Color Urine Clarity Urine pH Ur Specific [place] Urine Protein Urine Glucose (UA) Urine Ketones Urine Occult Blood Urine Nitrite Urine Bilirubin Urine Urobilinogen Ur Leukocyte Esterase Urine RBC Urine WBC Ur Squamous Epith Cells Urine Bacteria Urine Mucus 07/30/21 10:40 WBC RBC Hgb Hct MCV MCH MCHC RDW Std Deviation RDW Coeff of Akhil Plt Count MPV Immature Gran % (Auto) Neut % (Auto) Lymph % (Auto) [place] % (Auto) Eos % (Auto) Baso % (Auto) Absolute Neuts (auto) Absolute Lymphs (auto) Nucleated RBC % Sodium Potassium Chloride Carbon Dioxide Anion Gap BUN Creatinine Estim Creat Clear Calc Est GFR (MDRD) Af Amer Est GFR (MDRD) Non-Af BUN/Creatinine Ratio Glucose Lactic Acid Calcium Total Bilirubin AST ALT Alkaline Phosphatase C-React Prot Ext Range Total Protein Albumin Globulin Albumin/Globulin Ratio Urine Color Yellow Urine Clarity Clear Urine pH 8.0 Ur Specific [place] 1.010 Urine Protein 15 H Urine Glucose (UA) Normal Urine Ketones Negative Urine Occult Blood Negative Urine Nitrite Negative Urine Bilirubin Negative Urine Urobilinogen Normal Ur Leukocyte Esterase Negative Urine RBC 0 SEEN Urine WBC 0 SEEN Ur Squamous Epith Cells 0 SEEN Urine Bacteria 0 SEEN Urine Mucus 0 SEEN Radiography Diagnostic Testing: Clinical Impression(s) from Imaging Studies Abdomen/Pelvis CT 07/30/21 07:57 IMPRESSION: I suspect residual colitis of the transverse colon and left hemicolon. Electronically Signed: Giovanny Hernandez MD at 9:03 EST , Service support , Discharge Plan Triage Chief Complaint: Abd Pain ED Provider: Vesna Walton Dx/Rx/DC Orders Clinical Impression: Abdominal pain, Colitis Instructions: Abdominal Pain, ED Ulcerative Colitis Prescriptions: New ciprofloxacin HCl [Cipro] 500 mg tablet 500 mg PO BID Qty: 20 RF: 0 metronidazole 500 mg tablet 500 mg PO Q8H Qty: 30 RF: 0 prednisone 20 mg tablet 20 mg PO BID Qty: 10 RF: 0 hydrocodone-acetaminophen [hydrocodone-acetaminophen] 1 TABLET tablet 1 tab PO Q4H PRN PRN (Reason: Pain) 2 Days Qty: 10 RF: 0 No Action dicyclomine 10 MG capsule 10 mg PO TID Qty: 21 RF: 0 ondansetron [ondansetron] 4 MG tablet 8 mg PO Q8H PRN PRN (Reason: Nausea) Qty: 20 RF: 0 Primary Care Provider: Elizabeth Bell Referrals: Elizabeth Bell DO [Primary Care Provider] - Friend,DO Chucky [STAFF PHYSICIAN] - 3-5 Days Disposition Disposition: Home, Self Care Discharge Date/Time: 07/30/21 12:47
[2021-07-30] MEDS: Ondansetron 4 MG/2 ML Vial IV ×2 (08:19→11:03)
[2021-07-30] MEDS: Morphine 4 MG/ML Syringe IV ×2 (08:19→10:48)
[2021-07-30 08:20] LABS: Absolute Lymphocyte Count 0.94 X10^3/uL (0.83-4.51); Absolute Neutrophil Count 7.4 X10^3/uL (2.0-7.7); Basophil# 0.05 X10^3/uL; Basophil% 0.6 % (0-1); Eosinophil# 0.01 X10^3/uL; Eosinophils% 0.1 % (0-5); Hemoglobin 14.9 g/dL (13.0-16.5); Lymphocyte # 0.94 X10^3/ul (0.83-4.51); Lymphocyte % 10.7 % (19-41); Mean Corp Hgb Conc 34.7 g/dL (32-36); Mean Corpuscular Hgb 30.5 pg (27.0-32.0); Mean Corpuscular Volume 87.9 fL (80-94); Mean Platelet Vol. 10.9 fl (6.2-12.0); Monocyte# 0.28 X10^3/uL; Monocyte% 3.2 % (0-10); NRBC Flagged by Analyzer 0 % (0-5); Neutrophil # 7.43 X10^3/uL (2.7-7.7); Neutrophil % 84.9 % (47-70); Platelet Count 241 K/mm3 (150-450); RBC Distribution Width CV 12.4 % (11.6-14.6); RBC Distribution Width SD 40.5 fl (35.1-43.9); Red Blood Count 4.89 M/mm3 (4.6-6.2); White Blood Count 8.8 K/mm3 (4.4-11.0)
[2021-07-30] MEDS: 0.9% Normal Saline 1,000 ML 125 ML IV (08:20)
[2021-07-30 08:46] LABS: ALB/GLOB Ratio 1.2 RATIO (0.9-2.4); AST(SGOT) 19 U/L (15-37); Alanine Aminotransfer ALT/SGPT 25 U/L (16-61); Albumin, Serum 4.4 g/dL (3.2-5.0); Alkaline Phosphatase 60 U/L (45-117); Anion Gap 6 (5-15); BUN 8 mg/dL (7-18); BUN/Creat Ratio 7.9 RATIO (10-20); CRP < 2.90 mg/L (0.0-3.0); Calcium,Total 9.4 mg/dL (8.5-10.1); Chloride 107 mmol/L (98-107); Creatinine, Serum 1.01 mg/dL (0.70-1.30); EST Glomerular Filtration Rate 99 mL/min (>60); Est Glom Filt Rate - Afr Amer 120 mL/min (>60); Globulin 3.6 g/dL (2.2-4.2); Glucose 110 mg/dL (74-106); Potassium 3.9 mmol/L (3.5-5.1); Sodium Level 140 mmol/L (136-145)
[2021-07-30 08:49] LABS: Lactic Acid 2.2 mmol/L (0.4-1.9)
--- NOTE | 2021-07-30 09:03 | ED.RN ---
pt to bathroom . aware needs urine sample but will not provide
[2021-07-30 10:47] LABS: Bacteria 0 SEEN /hpf (None Seen); Mucous, Urine 0 SEEN /hpf (<or=2+); Red Blood Cells-Urine 0 SEEN /hpf (0-5); Squamous Epithelial Cells - UA 0 SEEN /hpf (0-5); White Blood Cells 0 SEEN /hpf (0-5)
[2021-07-30 10:48] LABS: Color, Urine Yellow (Yellow); Glucose, Dipstick Normal (Normal); Ketone-Dipstick Negative (Negative); Leukocyte Esterase-Dipstick Negative /ul (Negative); Nitrite-Dipstick Negative (Negative); Occult Blood-Urine Negative /ul (Negative); Protein-Dipstick 15 mg/dl (Negative); Urine Bilirubin Dipstick Negative (Negative); Urine Clarity Clear (Clear); Urine Urobilinogen Normal (Normal)
[2021-07-30 10:55] VITALS: BP 130/90; PULSE 90; RESP 18; O2SAT 99
[2021-07-30 12:18] LABS: Reflex Lactate? Y
[2021-07-30] MEDS: predniSONE 20 MG Tablet 40 MG PO (12:19)
[2021-07-30] MEDS: Ciprofloxacin 500 MG Tablet PO (12:20)
[2021-07-30] MEDS: metroNIDAZOLE 500 MG Tablet PO (12:20)
--- NOTE | 2021-07-30 12:44 | ED.RN ---
rn at bedside to see how patient felt after oral antibiotics and prednisone. pt states meds really messed up my stomach but i still want to go home. RN removed patients IV and patient sat up in bed and began vomiting. RN asked patient again if it would be an option to stay in the hospital to get pain and vomiting under control. pt states he still wants to go home and he will return if he gets worse. pt walked out of ED in no distress.
== END 2021-07-30 12:47 | disposition home or self-care (01) ==
PROVIDERS: Emergency Provider Emergency Medicine; PCP Internal Medicine
DX: K52.9 Noninfective gastroenteritis and colitis, unspecified (principal)
CPT/HCPCS: 74176; 80053; 81001; 83605; 85025; 86140; 96361; 96374; 96375; 96376; 99284; J7030; A4216; J2405

== ENCOUNTER 2023-08-17 05:25 | Emergency (ER) | payer OTHER, SELFPAY ==
[2023-08-17 05:25] VITALS: BP 155/97; PULSE 92; RESP 14; TEMP 36.6; O2SAT 97; BMI 23.7
--- NOTE | 2023-08-17 05:32 | EDS_ITS ---
HPI History of Present Illness Chief Complaint: Ear Problem Informant: patient Onset/Context/Timing Onset: Days (4 days) Context: Gradual Onset Narrative Narrative: Patient presents with 4-day history of right ear pain. He states he will sometimes get ear pain when he has sinus congestion but does not currently have any congestion or URI symptoms. He did clean his ears out with a Q-tip but states he was not overly aggressive. He has not had fever or cough. He has not taken anything for pain. PFSH PFSH Medical History no medical history no medical history Home Medications naproxen 500 mg tablet (Naprosyn) 500 mg PO BID PRN pain #20 tabs 08/17/23 [Rx Last Taken Unknown] Allergy/AdvReac Type Severity Reaction Status Date / Time No Known Allergies Allergy Verified 08/17/23 06:04 Social History Smoking Status: Never smoker substance use type: marijuana and other details: No IV drug use or other illicits ROS ROS ED Constitutional Constitutional ED: Denies chills or fever(s) Eyes Eyes: Denies discharge from eye(s) ENT ENT ED: Reports ear pain right; Denies discharge from eye(s), rhinorrhea or sore throat Cardiovascular Cardiovascular: Denies chest pain Respiratory/Chest Respiratory/Chest: Denies cough or dyspnea Gastrointestinal Gastrointestinal: Denies abdominal pain, nausea or vomiting Musculoskeletal Musculoskeletal: Denies back pain or extremity pain Integumentary Denies Abrasions or rash Neurologic Neurologic: Denies headache(s) or weakness Psychiatric Psychiatric: Denies anxiety or depression Allergic/Immunologic Allergic/Immunologic ED: Denies lip swelling or urticaria EXAM Physical Exam Narrative Exam Narrative: Patient nontoxic-appearing and in no acute distress. Speaks with a strong voice and tolerates secretions well. Const Vital Signs: 08/17/23 05:25 Temperature 98 F Temperature Source Temporal Pulse Rate 92 Respiratory Rate 14 Blood Pressure 155/97 H Blood Pressure Mean 116 Pulse Ox 97 Oxygen Delivery Method Room Air Positive well nourished and well developed General Appearance ED: well developed HEENT Reports moist mucous membranes HEENT Narrative: 3+ tonsils. Uvula midline. TMs are clear bilaterally with no evidence of otitis. Eyes EOMs intact bilaterally Neck Neck Narrative: Mild bilateral cervical lymphadenopathy. Chest Wall inspection of chest normal and palpation of chest normal Resp normal respiratory effort and clear to auscultation bilaterally Cardio regular rate and regular rhythm GI non-tender Palpation: soft Extremity normal to inspection Neuro oriented x3 and no sensory deficits noted Motor Exam: strength 5/5 throughout Psych mental status grossly normal Skin no rashes or lesions noted MDM MDM MDM Narrative Medical decision making narrative: Patient given dose of naproxen for pain. Rapid strep test sent. Rapid strep test is negative. Test results discussed with the patient. I advised him I would give him a single dose of Decadron here to help with some of the tonsillar swelling and write him a prescription for naproxen. He is now requesting a COVID test. COVID test is obtained and is also negative. Supportive care discussed and return instructions given. Discharge Plan Triage Chief Complaint: Ear Problem ED Provider: Martha Stevens Dx/Rx/DC Orders Clinical Impression: Otalgia, Acute viral pharyngitis Instructions: ED Earache Without Infection (Adult), ED Pharyngitis, Viral Prescriptions: New naproxen [Naprosyn] 500 mg tablet 500 mg PO BID PRN (Reason: pain) Qty: 20 0RF Primary Care Provider: Care Physician,No Primary Referrals: Darell Garcia MD [Med Staff - Dry Transfer Man] - As Needed NOT,DEFINED [Non-Staff] - Disposition Disposition: Home, Self Care
[2023-08-17] MEDS: Naproxen 500 MG Tablet PO (05:51)
[2023-08-17] MEDS: dexAMETHasone 4 MG Tablet 6 MG PO (06:20)
== END 2023-08-17 06:52 | disposition home or self-care (01) ==
PROVIDERS: Emergency Provider Emergency Medicine; Visit Provider Emergency Medicine
DX: J02.8 Acute pharyngitis due to other specified organisms (principal); H92.09 Otalgia, unspecified ear
CPT/HCPCS: 87811; 87880; 99283

== ENCOUNTER 2023-09-22 20:18 | Emergency (ER) | payer OTHER, SELFPAY ==
[2023-09-22 20:19] VITALS: BP 147/80; PULSE 93; RESP 18; TEMP 36.7; O2SAT 100; BMI 21.2
--- NOTE | 2023-09-22 20:23 | RAD_ITS ---
STUDY: X-RAY - LEFT CLAVICLE REASON FOR EXAM: Male, 23 years old. FALL TECHNIQUE: 2 view(s) of the clavicle. COMPARISON: None. FINDINGS: There is a comminuted fracture involving the distal aspect of the left clavicle with multiple displaced fragments. Otherwise normal acromioclavicular articulation. Normal visualized sternoclavicular articulation. Normal visualized pulmonary apex. RAD/Clavicle IMPRESSION: Left clavicular fracture as described. Electronically Signed: Flaquita Del Valle MD at 21:04 EST ,
[2023-09-22] MEDS: HYDROcodone Bitartrate/Apap 5/325 Tablet PO (21:31)
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
[2023-09-22 22:52] VITALS: BP 134/68; PULSE 78; RESP 18
== END 2023-09-22 23:21 | disposition home or self-care (01) ==
PROVIDERS: Emergency Provider Student in an Organized Health Care Education/Training Program; PCP Internal Medicine; Visit Provider Student in an Organized Health Care Education/Training Program
DX: S42.002A Fracture of unspecified part of left clavicle, initial encounter for closed fracture (principal); S62.102A Fracture of unspecified carpal bone, left wrist, initial encounter for closed fracture; W19.XXXA Unspecified fall, initial encounter
CPT/HCPCS: 73000; 99283

== ENCOUNTER 2024-08-12 12:54 | Emergency (ER) | payer OTHER, SELFPAY ==
[2024-08-12 12:55] VITALS: BP 117/80; PULSE 70; RESP 14; TEMP 36.1; O2SAT 98
--- NOTE | 2024-08-12 13:05 | CT_ITS ---
STUDY: CT ABDOMEN AND PELVIS WITH CONTRAST REASON FOR EXAM: Male, 24 years old. Pain RADIATION DOSAGE (If Supplied By Facility): CTDIvol = ( 8.74 ) mGy, DLP = ( 457.69 ) mGycm TECHNIQUE: Transaxial images were obtained from the dome of the diaphragm to the symphysis pubis without oral contrast. IV 100mL Isovue-370 was administered. Sagittal and coronal images were reconstructed. Individualized dose optimization techniques were used for this CT. COMPARISON: July 30, 2021 FINDINGS: The visualized lung bases are unremarkable. The visualized portions of the heart are within normal limits. Normal liver. Normal gallbladder and extrahepatic biliary system. Normal spleen. Normal pancreas. Normal bilateral adrenal glands. Normal right kidney. Normal left kidney. Normal visualized stomach. Normal small intestine. There is mild wall thickening of the descending colon with adjacent edema. There is non-visualization of the appendix. Normal abdominal aorta. Normal inferior vena cava. Normal retroperitoneum. Normal urinary bladder. There is no free fluid in the abdomen or pelvis. Normal abdominal wall. Normal osseous structures. CT/Abdomen/Pelvis W IV Cont ONLY IMPRESSION: Colitis with wall thickening on the left could be infectious or inflammatory. No obstruction. Electronically Signed: Sunday Sharma MD at 15:22 EST ,
--- NOTE | 2024-08-12 13:08 | ED.VIS.GI ---
HPI <Chin Rosa MD - Last Filed: 08/13/24 14:05> HPI - GI History of Present Illness Chief Complaint: Abd Pain Narrative Narrative: 24-year-old male states he has past medical history of colitis, last episode approximately a year ago presents with what he thinks is exacerbation of his colitis. This morning at 5 AM he awoke with abdominal pain, mainly in the right upper quadrant to right flank. Shortly thereafter, he started having nausea and vomiting. He has had up to 8 episodes without any hematemesis. No exacerbating or alleviating factors. Additionally, he does admit to smoking marijuana, last time earlier today. Regarding his colitis, he does not follow with a program services assistant and when asked why, he states I don't know. He denies problems with bowel movements. No fevers or chills. No prior abdominal surgeries. PFSH <Chin Rosa MD - Last Filed: 08/13/24 14:05> [facility] Home Medications ?Medication ?Instructions ?Recorded ?Last Taken ?Type naproxen 500 mg tablet (Naprosyn) 500 mg PO BID PRN pain #20 tabs 08/17/23 Unknown Rx hydrocodone-acetaminophen 5-325mg 1 tab PO Q6H PRN PRN Pain 3 days 09/22/23 Unknown Rx 5mg-325mg #12 TABLETS ondansetron 4 mg disintegrating 4 mg PO Q6H PRN nausea and 08/12/24 Unknown Rx tablet vomiting #10 tabs ondansetron 4 mg disintegrating 4 mg PO Q6H PRN nausea and 08/12/24 Unknown Rx tablet vomiting #10 tabs Allergy/AdvReac Type Severity Reaction Status Date / Time No Known Allergies Allergy Verified 08/12/24 12:56 Social History Smoking Status: Never smoker substance use type: marijuana and other details: No IV drug use or other illicits ROS <Chin Rosa MD - Last Filed: 08/13/24 14:05> ROS ED ROS Narrative Constitutional: No fever, no chills. HEENT: No sore throat. No neck pain. No loss of vision. No rhinorrhea. Cardiovascular: No chest pain. No palpitations. No pedal edema. Respiratory: No cough, no shortness of breath. Abdominal: Right upper quadrant and right lower quadrant abdominal pain. 8 episodes of nausea and vomiting without hematemesis. No diarrhea. Genitourinary: No dysuria. No hematuria. Musculoskeletal: No myalgias. No arthralgias. Neurologic: No headaches. No dizziness. No lightheadedness. Skin: No rash. No change in color. Psychiatric: No depression. No anxiety. EXAM <Chin Rosa MD - Last Filed: 08/13/24 14:05> Physical Exam Narrative Exam Narrative: Afebrile. Vital signs noted. Nontoxic-appearing. Cardiovascular examination reveals a regular rate and rhythm. Lungs are clear to auscultation bilaterally. Abdomen is soft, with mild tenderness to palpation along the right flank and the right upper and lower quadrants. Negative Bocanegra sign. Normal active bowel sounds. No guarding or rebound. Neurological examination is nonfocal and nonlateralizing. Const Vital Signs: 08/12/24 14:55 08/12/24 15:53 Temperature 97.3 F L Pulse Rate 81 61 Respiratory Rate 18 14 Blood Pressure 122/84 H 119/87 H Blood Pressure Mean 96 97 Pulse Ox 98 98 Oxygen Delivery Method Room Air <Dr. Maurice Ventura MD - Last Filed: 08/12/24 15:48> Physical Exam Const Vital Signs: 08/12/24 14:55 08/12/24 15:53 Temperature 97.3 F L Pulse Rate 81 61 Respiratory Rate 18 14 Blood Pressure 122/84 H 119/87 H Blood Pressure Mean 96 97 Pulse Ox 98 98 Oxygen Delivery Method Room Air [facility] <Chin Rosa MD - Last Filed: 08/13/24 14:05> [facility] Narrative Medical decision making narrative: Differential diagnosis includes but not limited to colitis versus diverticulitis versus pancreatitis versus cannabis hyperemesis. Additionally, he may have more of an inflammatory bowel disease including Crohn disease versus ulcerative colitis. I reviewed the patient's prior records and his last bout of colitis was approximately a year ago. During review of some of his ED visits, he receives morphine and ondansetron. CT imaging has shown colitis in the past, and sometimes pancolitis. Patient is usually discussed with Dr. Diaz with gastroenterology who recommends antibiotics and/or steroids, and outpatient follow-up. However, patient does not seem to follow-up with a primary care provider or gastroenterology. Patient was administered morphine and ondansetron again. Comprehensive workup was pursued including CBC, CMP, lipase, and CT imaging. I was able to review his laboratory work that returned and he has normal white count of 8.2 with hemoglobin 14.8, platelet count 285. Electrolytes grossly unremarkable. Lipase normal at 30 so I doubt pancreatitis. At this point in time, patient will be turned over to the evening physician, Dr. Ronnie Ventura, to check the CT scan and make final disposition on this patient. Disposition is pending. Patient is in stable condition. Dr. Ventura: Repeat exam patient doing well at 3:45 PM. Abdomen benign. We went over his test results and CAT scan. In the past this is just resolved without either steroids or antibiotics. He will be discharged with Zofran for nausea. Follow-up with GI as an outpatient. Patient is comfortable plan. History & Record Review Discussion w/independent historian: Patient Lab Data Attestation: I reviewed the patient's lab results. Labs: Laboratory Results - last 24 hr 08/12/24 13:10 WBC 8.2 RBC 4.50 L Hgb 14.8 Hct 41.0 MCV 91.1 MCH 32.9 H MCHC 36.1 H RDW Std Deviation 40.0 RDW Coeff of Akhil 12.0 Plt Count 285 MPV 10.4 Immature Gran % (Auto) 0.400 Neut % (Auto) 84.1 H Lymph % (Auto) 10.5 L Crane % (Auto) 4.6 Eos % (Auto) 0.0 Baso % (Auto) 0.4 Absolute Neuts (auto) 6.9 Absolute Lymphs (auto) 0.86 Nucleated RBC % 0 Sodium 141 Potassium 3.9 Chloride 107 Carbon Dioxide 26.0 Anion Gap 8 BUN 12 Creatinine 1.05 Est GFR (MDRD) Af Amer 111 Est GFR (MDRD) Non-Af 92 BUN/Creatinine Ratio 11.4 Glucose 119 H Calcium 9.7 Total Bilirubin 0.80 AST 16 ALT 26 Alkaline Phosphatase 49 Total Protein 8.1 Albumin 5.0 Globulin 3.1 Albumin/Globulin Ratio 1.6 Lipase 30 Radiography Diagnostic Testing: Clinical Impression(s) from Imaging Studies Abdomen/Pelvis CT 08/12/24 13:05 IMPRESSION: Colitis with wall thickening on the left could be infectious or inflammatory. No obstruction. Electronically Signed: Sunday Sharma MD at 15:22 EST , <Dr. Maurice Ventura MD - Last Filed: 08/12/24 15:48> [facility] MDM Narrative Medical decision making narrative: Differential diagnosis includes but not limited to colitis versus diverticulitis versus pancreatitis versus cannabis hyperemesis. Additionally, he may have more of an inflammatory bowel disease including Crohn disease versus ulcerative colitis. I reviewed the patient's prior records and his last bout of colitis was approximately a year ago. During review of some of his ED visits, he receives morphine and ondansetron. CT imaging has shown colitis in the past, and sometimes pancolitis. Patient is usually discussed with Dr. Diaz with gastroenterology who recommends antibiotics and/or steroids, and outpatient follow-up. However, patient does not seem to follow-up with a primary care provider or gastroenterology. Patient was administered morphine and ondansetron again. Comprehensive workup was pursued including CBC, CMP, lipase, and CT imaging. Repeat exam patient doing well at 3:45 PM. Abdomen benign. We went over his test results and CAT scan. In the past this is just resolved without either steroids or antibiotics. He will be discharged with Zofran for nausea. Follow-up with GI as an outpatient. Patient is comfortable plan. Lab Data Labs: Laboratory Results - last 24 hr 08/12/24 13:10 WBC 8.2 RBC 4.50 L Hgb 14.8 Hct 41.0 MCV 91.1 MCH 32.9 H MCHC 36.1 H RDW Std Deviation 40.0 RDW Coeff of Akhil 12.0 Plt Count 285 MPV 10.4 Immature Gran % (Auto) 0.400 Neut % (Auto) 84.1 H Lymph % (Auto) 10.5 L [place]ane % (Auto) 4.6 Eos % (Auto) 0.0 Baso % (Auto) 0.4 Absolute Neuts (auto) 6.9 Absolute Lymphs (auto) 0.86 Nucleated RBC % 0 Sodium 141 Potassium 3.9 Chloride 107 Carbon Dioxide 26.0 Anion Gap 8 BUN 12 Creatinine 1.05 Est GFR (MDRD) Af Amer 111 Est GFR (MDRD) Non-Af 92 BUN/Creatinine Ratio 11.4 Glucose 119 H Calcium 9.7 Total Bilirubin 0.80 AST 16 ALT 26 Alkaline Phosphatase 49 Total Protein 8.1 Albumin 5.0 Globulin 3.1 Albumin/Globulin Ratio 1.6 Lipase 30 Radiography Diagnostic Testing: Clinical Impression(s) from Imaging Studies Abdomen/Pelvis CT 08/12/24 13:05 IMPRESSION: Colitis with wall thickening on the left could be infectious or inflammatory. No obstruction. Electronically Signed: Sunday Sharma MD at 15:22 EST Reading Location ID and State: [address] [place] [address] , Service support , Discharge Plan Triage Chief Complaint: Abd Pain ED Provider: Chin Rosa Dx/Rx/DC Orders Clinical Impression: Nausea and vomiting, Abdominal pain, Colitis Instructions: ED Vomiting (Adult), ED Abdominal Pain Unkn Cause Male... Prescriptions: New ondansetron 4 mg tablet,disintegrating 4 mg PO Q6H PRN (Reason: nausea and vomiting) Qty: 10 0RF No Action naproxen [Naprosyn] 500 mg tablet 500 mg PO BID PRN (Reason: pain) Qty: 20 0RF hydrocodone-acetaminophen 5-325 mg tablet 1 tab PO Q6H PRN PRN (Reason: Pain) 3 Days Qty: 12 0RF ondansetron 4 mg tablet,disintegrating 4 mg PO Q6H PRN (Reason: nausea and vomiting) Qty: 10 0RF Primary Care Provider: Elizabeth Bell Referrals: Elizabeth Bell DO [Primary Care Provider] - Chucky Diaz DO [Med Staff - Active Staff] - As soon as possible Activity Restrictions/Additional Instructions: Plenty of fluids and rest. Increase your diet slowly as tolerated. You have colitis on the left side of your colon its only mild. Call and follow-up with Dr. Diaz's office. Zofran as needed for nausea. You may use water let it dissolve in your tongue. Print Language: Swazi Disposition Disposition: Home, Self Care Discharge Date/Time: 08/12/24 15:53
[2024-08-12 13:16] LABS: Absolute Lymphocyte Count 0.86 X10^3/uL (0.83-4.51); Absolute Neutrophil Count 6.9 X10^3/uL (2.0-7.7); Basophil# 0.03 X10^3/uL; Basophil% 0.4 % (0-1); Hemoglobin 14.8 g/dL (13.0-16.5); Lymphocyte # 0.86 X10^3/ul (0.83-4.51); Lymphocyte % 10.5 % (19-41); Mean Corp Hgb Conc 36.1 g/dL (32-36); Mean Corpuscular Hgb 32.9 pg (27.0-32.0); Mean Corpuscular Volume 91.1 fL (80-94); Mean Platelet Vol. 10.4 fl (6.2-12.0); Monocyte# 0.38 X10^3/uL; Monocyte% 4.6 % (0-10); NRBC Flagged by Analyzer 0 % (0-5); Neutrophil # 6.91 X10^3/uL (2.7-7.7); Neutrophil % 84.1 % (47-70); Platelet Count 285 K/mm3 (150-450); White Blood Count 8.2 K/mm3 (4.4-11.0)
[2024-08-12] MEDS: Ondansetron 4 MG/2 ML Vial IV (13:18)
[2024-08-12] MEDS: Morphine 4 MG/ML Syringe IV (13:18)
[2024-08-12] MEDS: 0.9% Normal Saline (1000mL) 1,000 ML 999 ML IV (13:20)
[2024-08-12 13:31] LABS: ALB/GLOB Ratio 1.6 RATIO (0.9-2.4); AST(SGOT) 16 U/L (15-37); Alanine Aminotransfer ALT/SGPT 26 U/L (16-61); Alkaline Phosphatase 49 U/L (45-117); Anion Gap 8 (5-15); BUN 12 mg/dL (7-18); BUN/Creat Ratio 11.4 RATIO (10-20); Calcium,Total 9.7 mg/dL (8.5-10.1); Chloride 107 mmol/L (98-107); Creatinine, Serum 1.05 mg/dL (0.70-1.30); EST Glomerular Filtration Rate 92 mL/min (>60); Est Glom Filt Rate - Afr Amer 111 mL/min (>60); Globulin 3.1 g/dL (2.2-4.2); Glucose 119 mg/dL (74-106); Lipase 30 U/L (13-75); Potassium 3.9 mmol/L (3.5-5.1); Protein, Total 8.1 g/dL (6.4-8.2); Sodium Level 141 mmol/L (136-145)
[2024-08-12 14:55] VITALS: BP 122/84; PULSE 81; RESP 18; O2SAT 98
[2024-08-12 15:53] VITALS: BP 119/87; PULSE 61; RESP 14; TEMP 36.3; O2SAT 98
== END 2024-08-12 15:53 | disposition home or self-care (01) ==
PROVIDERS: Emergency Provider Emergency Medicine; PCP Internal Medicine; Visit Provider Emergency Medicine
DX: K52.9 Noninfective gastroenteritis and colitis, unspecified (principal); R10.31 Right lower quadrant pain; R11.2 Nausea with vomiting, unspecified
CPT/HCPCS: 74177; 80053; 83690; 85025; 96361; 96374; 96375; 99283; J7030; Q9967; A4216; J2405

== ENCOUNTER 2024-08-12 21:18 | Emergency (ER) | payer OTHER, SELFPAY ==
[2024-08-12 21:19] VITALS: BP 122/90; PULSE 83; RESP 16; TEMP 36.6; O2SAT 97; BMI 19.8
--- NOTE | 2024-08-12 21:32 | EDS_ITS ---
HPI HPI - GI History of Present Illness Chief Complaint: Abd Pain Informant: patient Abdominal Pain/Flank Pain Onset: Today and Hours Context: Gradual Onset Timing: Continuous Quality: Cramping Location: Diffuse Current Severity: Mild Maximum Severity: Mild Worsened by: Nothing Relieved by: Nothing Nausea/Vomiting/Emesis GI Symptom: Positive for Nausea and Vomiting Onset: Today and Hours Severity: Moderate Diarrhea/Melena/Hematochezia GI Symptom: Negative for Diarrhea, Melena or Hematochezia Associated Symptoms Associated Symptoms: Negative for Dysuria, Frequency, Hematuria or Urgency Narrative Narrative: 24-year-old male history of marijuana use. History of colitis. Patient seen earlier today several hours got a CAT scan labs are unremarkable. He states around 5 AM this morning he started with nausea and vomiting. Denies any diarrhea or fever. No dysuria. He is never had any abdominal surgeries. Denies any abdominal trauma. Has had episodes like this before which were reportedly secondary to colitis. Prior similar symptoms: Yes Recent Illness/Hospitalization: No PFSH PFSH Medical History unable to obtain Home Medications ?Medication ?Instructions ?Recorded ?Last Taken ?Type naproxen 500 mg tablet (Naprosyn) 500 mg PO BID PRN pain #20 tabs 08/17/23 Unknown Rx hydrocodone-acetaminophen 5-325mg 1 tab PO Q6H PRN PRN Pain 3 days 09/22/23 Unknown Rx 5mg-325mg #12 TABLETS ondansetron 4 mg disintegrating 4 mg PO Q6H PRN nausea and 08/12/24 Unknown Rx tablet vomiting #10 tabs ondansetron 4 mg disintegrating 4 mg PO Q6H PRN nausea and 08/12/24 Unknown Rx tablet vomiting #10 tabs Allergy/AdvReac Type Severity Reaction Status Date / Time No Known Allergies Allergy Verified 08/12/24 12:56 Social History Smoking Status: Never smoker substance use type: marijuana and other details: No IV drug use or other illicits ROS ROS ED ROS Narrative Nausea and vomiting. Abdominal cramping. Constitutional Constitutional ED: Denies fever(s) ENT ENT ED: Denies ear pain Cardiovascular Cardiovascular: Denies chest pain Respiratory/Chest Respiratory/Chest: Denies cough Gastrointestinal Gastrointestinal: Reports abdominal pain, nausea and vomiting; Denies constipation, diarrhea or melena Genitourinary Genitourinary ED: Denies dysuria or hematuria Musculoskeletal Musculoskeletal: Denies arthralgias Integumentary Denies abscess Neurologic Neurologic: Denies headache(s) Psychiatric Psychiatric: Denies anxiety Endocrine Endocrinology: Denies polydipsia Hematologic/Lymphatic Hematologic/Lymphatic: Denies easy bleeding Allergic/Immunologic Allergic/Immunologic ED: Denies mouth swelling EXAM Physical Exam Narrative Exam Narrative: 23-year-old male vital signs stable afebrile. He does not look septic toxic. No distress. Sitting upright in bed. H EENT exam pupils round react light. Moist mucous membranes. No trauma. Neck nontender no meningismus. Lungs clear to auscultation bilaterally. Heart regular rhythm rate about 80 no murmur. Chest wall ribs nontender. Abdomen soft, nondistended normal bowel sounds without peritoneal signs. No signs of obstruction. No hernia. No localizing tenderness is just complaining of cramping. There is no Bocanegra sign or McBurney's point tenderness. No signs of trauma or bruising. Moving all 4 extremities. Nontender no edema. Normal strength and range of motion. Back nontender. Neurologically is awake and alert no focal motor deficits. Answering questions following commands. Const Vital Signs: 08/12/24 21:19 Temperature 97.9 F Temperature Source Oral Pulse Rate 83 Respiratory Rate 16 Blood Pressure 122/90 H Blood Pressure Mean 100 Pulse Ox 97 Positive well nourished and well developed; Negative for obese, cachectic, contractures or unkempt General Appearance ED: well developed; Negative for unkempt, cachectic, contractures or pallor Nutritional Appearance: Negative for cachectic or obese HEENT Reports moist mucous membranes normocephalic and atraumatic; Negative for trauma or tenderness Eyes PERRL and EOMs intact bilaterally Neck no lymphadenopathy, supple and no JVD Resp normal respiratory effort and clear to auscultation bilaterally Effort and Inspection: Negative for respiratory distress Auscultation: Negative for rales, rhonchi or wheezes Cardio regular rate, regular rhythm, S1 normal heart sound, S2 normal heart sound and no murmurs Rate: Negative for tachycardic Rhythm: Negative for abnormal rhythm GI non-tender, non-distended and no masses Inspection: Negative for abdominal distention Palpation: soft; Negative for guarding, rigid or rebound tenderness present Back/Spine no CVA tenderness General Back: Negative for CVA tenderness Cervical Spine: Negative for cervical spine tenderness Thoracic Spine / Upper Back: Negative for thoracic spinal tenderness Lumbar Spine / Lower Back: Negative for lumbar spinal tenderness Extremity full ROM General Extremety ED: Negative for edema or tenderness General Extremity: Negative for edema Neuro CN's II-XII intact bilaterally and moves all extremities Sensorium / Orientation: alert, oriented to person, oriented to place and oriented to time Motor Exam: strength 5/5 throughout Psych mental status grossly normal and thought process normal Appearance: Negative for unkempt Attitude: No agitated Mood & Affect: Negative for anxious or tearful Skin no wounds General Skin Exam: Negative for jaundice or pallor Lesions: no lesions Rashes: no rashes Trauma: Negative for abrasion Nails: Negative for discolored MDM MDM MDM Narrative Medical decision making narrative: 24-year-old male history of prior colitis was seen earlier today had unremarkable labs and CAT scan consistent with mild descending colon colitis. He also smokes marijuana this could be secondary to cyclic vomiting from that. Exam is pretty benign. Be treated with IV fluids, Zofran, Toradol for pain and morphine and reassess. I do not think he needs his labs repeated or his CAT scan again there is just were done several hours ago. Repeat exam patient is doing much better at 7:25 PM. Abdomen is benign. No peritoneal signs. No localizing tenderness. His nausea currently is resolved with Zofran. He is drinking water. He is receiving a liter of normal saline. He can hold on the water be discharged home Zofran to be filled at the hospital so he has it with him. I explained both he and his family this could be secondary to colitis but can also be secondary to cyclic vomiting from marijuana use. History & Record Review Additional record(s) reviewed:: Prior inpatient record, Prior outpatient record, Prior ED visit and Prior labs Discharge Plan Triage Chief Complaint: Abd Pain Other Complaint: Nausea/Vomiting ED Provider: Maurice Ventura Dx/Rx/DC Orders Clinical Impression: Nausea and vomiting, Abdominal pain, Colitis Instructions: Abdominal Pain, ED Vomiting (Adult) Prescriptions: New ondansetron 4 mg tablet,disintegrating 4 mg PO Q6H PRN (Reason: nausea and vomiting) Qty: 10 0RF No Action naproxen [Naprosyn] 500 mg tablet 500 mg PO BID PRN (Reason: pain) Qty: 20 0RF hydrocodone-acetaminophen 5-325 mg tablet 1 tab PO Q6H PRN PRN (Reason: Pain) 3 Days Qty: 12 0RF ondansetron 4 mg tablet,disintegrating 4 mg PO Q6H PRN (Reason: nausea and vomiting) Qty: 10 0RF Primary Care Provider: Elizabeth Bell Referrals: Elizabeth Bell, DO [Primary Care Provider] - 1-2 Days if not improving Activity Restrictions/Additional Instructions: Plenty of fluids and rest. Slowly increase your diet as tolerated. Start with bland foods such as liquids and then Brus and then soups. Do not try to eat anything spicy or greasy. Zofran as needed for nausea you can swallow it and let dissolve on your tongue. Follow-up with your doctor if not improving or return if worse. This may be from your colitis this could also be from cyclic vomiting caused by a using marijuana. Long-term try to stop that. Print Language: Pashto Disposition Disposition: Home, Self Care
[2024-08-12] MEDS: Ondansetron 4 MG/2 ML Vial IV ×2 (21:37→23:33)
[2024-08-12] MEDS: 0.9% Normal Saline (1000mL) 1,000 ML 1000 ML IV (21:37)
[2024-08-12] MEDS: Ketorolac 30 MG/ML Syringe IV (21:38)
[2024-08-12] MEDS: Morphine 4 MG/ML Syringe IV ×2 (21:38→22:39)
[2024-08-12 23:19] VITALS: BP 140/83; PULSE 53; RESP 16; O2SAT 100
[2024-08-12] MEDS: Capsaicin 0.025% 1 APPLIC Tube TOPICAL (23:33)
[2024-08-12] MEDS: Famotidine 200 MG/20 ML MDV 20 MG in 0.9% Normal Saline (Pres. free 8 ML 300 MG IV (23:33)
[2024-08-12] MEDS: DiphenhydrAMINE 25 MG, ChlorproMAZINE IM 25 MG in 0.9% Normal Saline (100mL Bag) 100 ML 203 MG IV (23:33)
[2024-08-12] MEDS: LORazepam 2 MG/ML Syringe 0.5 MG IV (23:34)
[2024-08-13 01:00] VITALS: BP 95/60; PULSE 85; RESP 18; O2SAT 97
[2024-08-13 02:00] VITALS: BP 98/67; PULSE 85; RESP 18; TEMP 36.6; O2SAT 97
== END 2024-08-13 02:09 | disposition home or self-care (01) ==
PROVIDERS: Emergency Provider Emergency Medicine; PCP Internal Medicine; Visit Provider Emergency Medicine
DX: R11.2 Nausea with vomiting, unspecified (principal); F12.90 Cannabis use, unspecified, uncomplicated; K52.9 Noninfective gastroenteritis and colitis, unspecified
CPT/HCPCS: 96361; 96365; 96375; 96376; 99283; J7030; A4216; J2405; J3490